=== PATIENT | male | born 1990 | race Caucasian/White ===

== ENCOUNTER 2020-12-26 10:08 | Outpatient (REF) | payer BC, SELFPAY | END 2020-12-26 10:09 | disposition home or self-care (01) | LOC: LBN 10:08 | PROVIDERS: Visit Provider Physician Assistant Medical | DX: J02.9 Acute pharyngitis, unspecified (principal) | CPT/HCPCS: 87070 ==

== ENCOUNTER 2021-02-25 08:42 | Outpatient (REF) | payer BC, SELFPAY ==
[2021-02-25 16:21] LABS: BUN 10 mg/dL (7-18); Calcium 8.9 mg/dL (8.5-10.1); Glucose 86 mg/dL (74-106)
[2021-02-25 16:22] LABS: CREATININE 0.9 mg/dL (0.70-1.30); Calculated LDL 91 mg/dL (<100); Cholesterol 147 mg/dL (<200); HDL Cholesterol 47 mg/dL (40-60); Total Protein 7.4 g/dL (6.4-8.2); Triglyceride 45 mg/dL (<150)
[2021-02-25 16:23] LABS: Albumin 4.5 g/dL (3.4-5.0)
[2021-02-25 16:24] LABS: Alkaline Phosphatase 85 U/L (46-116); Bilirubin, Total 0.7 mg/dL (0.2-1.0); Chloride 102 mmol/L (98-107); Sodium 142 mmol/L (136-145)
[2021-02-25 16:25] LABS: ALT 33 U/L (16-63); AST 15 U/L (15-37); Anion Gap 10.6 mmol/L (3-11); CO2 29.4 mmol/L (21.0-32.0); TSH 0.92 uIU/mL (0.36-3.74)
[2021-02-25 16:26] LABS: FREE T4 1.01 ng/dL (0.76-1.46)
== END 2021-02-25 08:43 | disposition home or self-care (01) ==
LOC: NCHCN 08:42
PROVIDERS: Visit Provider Physician Assistant
DX: Z00.00 Encounter for general adult medical examination without abnormal findings (principal); Z13.220 Encounter for screening for lipoid disorders; Z13.29 Encounter for screening for other suspected endocrine disorder
CPT/HCPCS: 80053; 80061; 84439; 84443

== ENCOUNTER 2021-10-01 13:03 | Emergency (ER) | payer BC, SELFPAY ==
[2021-10-01 13:13] VITALS: BP 133/81; PULSE 74; RESP 16; TEMP 36.6; O2SAT 98
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
[2021-10-01 15:01] VITALS: BP 126/55; PULSE 66; RESP 16; O2SAT 99
--- NOTE | 2021-10-05 15:48 | NUR.NOTE ---
Nursing Note: Patient spoke with Fred Parson about a work note. A handwritten one was done, a copy sent to medical records, patient copy faxed to [facility] and patient will pick remover his copy tomorrow.
== END 2021-10-01 15:02 | disposition home or self-care (01) ==
PROVIDERS: Emergency Provider Physician Assistant
DX: S49.81XA Other specified injuries of right shoulder and upper arm, initial encounter (principal); W17.81XA Fall down embankment (hill), initial encounter; Y93.55 Activity, bike riding
CPT/HCPCS: 99283; 73030; 99282

== ENCOUNTER 2023-04-29 14:49 | Outpatient (CLI) | payer SELFPAY ==
[2023-05-02 13:11] LABS: Varicella IgG Antibody Negative (See Note)
[2023-05-02 13:14] LABS: Measles IgG Antibody Negative (See Note); Mumps Antibody IgG Positive (See Note)
[2023-05-02 13:53] LABS: Rubella IgG Ab (UVM) Positive (See Note)
[2023-05-02 15:06] LABS: TB Interpretation Positive (Negative); TB1 Ag minus Nil 0.44 IU/ml; TB2 Ag minus Nil 0.52 IU/mL
== END 2023-04-29 14:50 | disposition home or self-care (01) ==
LOC: LBO 14:50
PROVIDERS: PCP Physician Assistant; Visit Provider Nurse Practitioner Family
DX: Z02.1 Encounter for pre-employment examination (principal)
CPT/HCPCS: 36415; 86787; 86480; 86735; 86762; 86765

== ENCOUNTER → 2023-05-05 02:19 | Outpatient (CLI) | payer BC, SELFPAY ==
--- NOTE | 2023-05-05 09:15 | DI.RAD_ITS ---
Exam(s) XR CHEST 2V PA LATERAL EXAM: XR CHEST 2V PA LATERAL CLINICAL HISTORY: screening,P tb gold test,R76.12 TECHNIQUE: 2D digital imaging was performed. COMPARISON: No exams were available for comparison FINDINGS: No evidence of adenopathy. HEART: Normal size. Aorta: Not dilated. PULMONARY VASCULATURE: Normal. LUNGS: Clear. PLEURAL SPACE: No pleural effusion or pneumothorax. BONE:Unremarkable for age. Soft tissues: Unremarkable. IMPRESSION: No acute abnormality. No evidence of active or old healed tuberculosis. DATA REPOSITORY: RADIATION DOSE DELIVERED:
== END ==
PROVIDERS: PCP Physician Assistant; Visit Provider Nurse Practitioner Family
DX: R76.12 Nonspecific reaction to cell mediated immunity measurement of gamma interferon antigen response without active tuberculosis (principal)
CPT/HCPCS: 71046

== ENCOUNTER 2023-06-14 11:34 | Outpatient (REF) | payer BC, SELFPAY ==
[2023-06-14 15:35] LABS: HCT 42.4 % (40.0-50.0); HGB 14.7 g/dL (13.5-17.5); MCH 31.4 pg (27.0-33.0); MCHC 34.7 % (32.0-36.0); MCV 91 fL (80-95); MPV 11.3 fL (8.0-11.0); Platelet Count 216 10^3/uL (130-400); RBC 4.68 10^6/uL (4.36-5.78); RDW 11.9 % (11.8-14.1); RDW-SD 39.3 fL; WBC 10.54 10^3/uL (4.4-10.8)
[2023-06-14 16:29] LABS: ALT 30 U/L (16-63); AST 16 U/L (15-37); Albumin 4.6 g/dL (3.4-5.0); Alkaline Phosphatase 68 U/L (46-116); Anion Gap 9.8 mmol/L (3-11); BUN 14 mg/dL (7-18); Bilirubin, Total 0.6 mg/dL (0.2-1.0); CO2 28.2 mmol/L (21.0-32.0); CREATININE 0.9 mg/dL (0.70-1.30); Calcium 9.3 mg/dL (8.5-10.1); Chloride 103 mmol/L (98-107); FREE T4 1.03 ng/dL (0.76-1.46); Glucose 94 mg/dL (74-106); Potassium 4.3 mmol/L (3.5-5.1); Sodium 141 mmol/L (136-145); TSH 0.59 uIU/Ml (0.36-3.74); Total Protein 7.5 g/dL (6.4-8.2)
[2023-06-14 17:06] LABS: Hemoglobin A1C 5.2 % (<5.7)
== END 2023-06-14 11:35 | disposition home or self-care (01) ==
LOC: NCHCN 11:34
PROVIDERS: PCP Physician Assistant; Referring Provider Physician Assistant; Visit Provider Physician Assistant
DX: R63.4 Abnormal weight loss (principal); Z13.1 Encounter for screening for diabetes mellitus
CPT/HCPCS: 80053; 85027; 83036; 84439; 84443

== ENCOUNTER 2023-07-15 16:42 | Outpatient (CLI) | payer BC, SELFPAY ==
[2023-07-15 15:26] LABS: Abs Immature Grans 0.01 10^3/uL (0.0-0.06); Absolute Basophil Count 0.03 10^3/uL (0.0-0.2); Absolute Eosinophil Count 0.13 10^3/uL (0.0-0.7); Absolute Lymphocyte Count 1.72 10^3/uL (1.2-3.4); Absolute Monocyte Count 0.53 10^3/uL (0.1-0.8); Absolute Neutrophil Count 3.22 10^3/uL (1.2-6.7); Basophils % 0.5; Eosinophils % 2.3; HCT 42.1 % (40.0-50.0); HGB 14.2 g/dL (13.5-17.5); Immature Grans % 0.2; Lymphocytes % 30.5; MCHC 33.7 % (32.0-36.0); MCV 92 fL (80-95); Monocytes % 9.4; Neutrophils % 57.1; Platelet Count 178 10^3/uL (130-400); RBC 4.58 10^6/uL (4.36-5.78); RDW 11.9 % (11.8-14.1); RDW-SD 39.7 fL; WBC 5.64 10^3/uL (4.4-10.8)
== END 2023-07-15 16:43 | disposition home or self-care (01) ==
LOC: LBO 16:44
PROVIDERS: PCP Physician Assistant; Visit Provider Family Medicine
DX: B37.0 Candidal stomatitis (principal)
CPT/HCPCS: 36415; 85025

== ENCOUNTER 2023-07-26 13:30 | Outpatient (REF) | payer BC, SELFPAY ==
[2023-07-26 16:02] LABS: ALT 36 U/L (16-63); AST 14 U/L (15-37); Albumin 4.4 g/dL (3.4-5.0); Alkaline Phosphatase 73 U/L (46-116); Anion Gap 5.8 mmol/L (3-11); BUN 12 mg/dL (7-18); Bilirubin, Total 0.6 mg/dL (0.2-1.0); CO2 33.2 mmol/L (21.0-32.0); CREATININE 0.9 mg/dL (0.70-1.30); Calcium 9.2 mg/dL (8.5-10.1); Chloride 101 mmol/L (98-107); Glucose 86 mg/dL (74-106); Potassium 4.4 mmol/L (3.5-5.1); Sodium 140 mmol/L (136-145); Total Protein 7.4 g/dL (6.4-8.2)
== END 2023-07-26 13:31 | disposition home or self-care (01) ==
LOC: NCHCN 13:30
PROVIDERS: PCP Physician Assistant; Visit Provider Physician Assistant
DX: Z22.7 Latent tuberculosis (principal)
CPT/HCPCS: 80053

== ENCOUNTER 2023-07-29 19:26 | Emergency (ER) | payer OTHER, BC, SELFPAY ==
[2023-07-29 19:32] VITALS: BP 143/87; PULSE 70; RESP 18; TEMP 36.1; O2SAT 98
[2023-07-29 19:35] VITALS: RESP 18
--- NOTE | 2023-07-29 20:03 | NUR.NOTE ---
Pt placed on care management referral list to Occupational Health for post exposure of needle stick to be seen as soon as possible and patient was started on (PEP)
[2023-07-29 20:11] LABS: ALT 39 U/L (16-63); AST 23 U/L (15-37); Albumin 4.3 g/dL (3.4-5.0); Alkaline Phosphatase 64 U/L (46-116); Bilirubin, Direct 0.1 mg/dL (0.0-0.2); Bilirubin, Total 0.2 mg/dL (0.2-1.0); Total Protein 7.3 g/dL (6.4-8.2)
[2023-07-29] MEDS: Raltegravir Potassium 400 MG TAB PO (20:12)
[2023-07-29] MEDS: Emtricitabine/Tenofovir 200 mg/300 mg TAB 1 EACH PO (20:12)
--- NOTE | 2023-07-29 22:40 | ED.GENADUL_ITS ---
Discharge Plan Disposition Patient Disposition: Home Discharge Details Clinical Impression: Accidental hypodermic needlestick injury Primary Care Provider: Bruno Lane ED Provider: Tammy Conner Home Meds and New Rx's Prescriptions: New emtricitabine-tenofovir (TDF) [Truvada] 200-300 mg tablet 1 tab PO DAILY Qty: 27 0RF Isentress 400 mg tablet 400 mg PO BID Qty: 54 0RF ondansetron HCl 4 mg tablet 4 mg PO Q8H PRN10 Days Qty: 30 0RF emtricitabine-tenofovir (TDF) [Truvada] 200-300 mg tablet 1 tab PO DAILY Qty: 27 0RF Isentress 400 mg tablet 400 mg PO BID Qty: 54 0RF Continued ibuprofen 200 mg capsule 200 mg PO Q6H PRN rifampin 300 mg capsule 600 mg PO BID Patient Comments: TAKE TWO CAPSULES BY MOUTH EVERY DAY Discharge Instructions Additional Instructions: The postexposure prophylaxis can make you very ill, nauseous, vomit, diarrhea, stomachache I recommend taking Zofran as needed for nausea and vomiting The recommendation is that you take this medication for the full 28 days for it to be effective If for any reason you are able to test the source patient and the patient is negative you could discontinue this Recommendation for repeat testing at 4 weeks, 12 weeks, and 6 months for hepatitis, hep C, and HIV, I placed you on the list for occupational health foll ow-up, please call them if you do not hear from them on Tuesday, you may also follow-up with your primary care physician Referrals: Bruno Lane [Primary Care Provider] - HPI General Date/Time Provider Initiated Documentation: 07/29/23 19:42 . HPI Narrative: This 33-year-old male presents with report of accidental hypodermic needlestick while performing a blood draw that punctured his left middle finger around the cuticle. He washed it immediately. He states his tetanus and hepatitis B series are up-to-date. He does not know the medical history of the source patient reportedly. The patient is considered to be high risk with a history of IV drug abuse. No other additional complaints. Related Data Home Medications Medication Instructions Recorded Confirmed ibuprofen 200 mg capsule 200 mg PO Q6H PRN 10/14/21 12/29/21 emtricitabine 200 mg-tenofovir 1 tab PO DAILY #27 tabs 07/29/23 disoproxil fumarate 300 mg tablet (Truvada) emtricitabine 200 mg-tenofovir 1 tab PO DAILY #27 tabs 07/29/23 disoproxil fumarate 300 mg tablet (Truvada) ondansetron HCl 4 mg tablet 4 mg PO Q8H PRN 10 days #30 tabs 07/29/23 raltegravir 400 mg tablet 400 mg PO BID #54 tabs 07/29/23 ([facility]) raltegravir 400 mg tablet 400 mg PO BID #54 tabs 07/29/23 ([facility]) rifampin 300 mg capsule 600 mg PO BID 07/29/23 07/29/23 Previous Rx's Medication Instructions Recorded emtricitabine 200 mg-tenofovir 1 tab PO DAILY #27 tabs 07/29/23 disoproxil fumarate 300 mg tablet (Truvada) emtricitabine 200 mg-tenofovir 1 tab PO DAILY #27 tabs 07/29/23 disoproxil fumarate 300 mg tablet (Truvada) ondansetron HCl 4 mg tablet 4 mg PO Q8H PRN 10 days #30 tabs 07/29/23 raltegravir 400 mg tablet 400 mg PO BID #54 tabs 07/29/23 ([facility]) raltegravir 400 mg tablet 400 mg PO BID #54 tabs 07/29/23 ([facility]) Allergies Allergy/AdvReac Type Severity Reaction Status Date / Time No Known Allergies Allergy Unverified 07/29/23 19:37 General Stated Complaint: GenMedical MO: 4 Course Vital Signs Vital signs: Vital Signs Temperature 36.1 C L 07/29/23 19:32 Pulse 70 07/29/23 19:32 Respiratory Rate 18 07/29/23 19:32 Blood Pressure 143/87 H 07/29/23 19:32 Pulse Oximetry 98 07/29/23 19:32 Temperature 36.1 C L 07/29/23 19:32 Temperature Source Tympanic 07/29/23 19:32 Pulse 70 07/29/23 19:32 Respiratory Rate 18 07/29/23 19:35 Respiratory Effort Normal 07/29/23 19:35 Blood Pressure 143/87 H 07/29/23 19:32 Pulse Oximetry 98 07/29/23 19:32 Oxygen Delivery Method Room Air 07/29/23 19:32 Oxygen Flow Rate 0 07/29/23 19:32 Pain Level 0 07/29/23 19:32 Lab/Test Results Lab/Test Results: Laboratory Tests Range/Units 07/29/23 18:45 Total Bilirubin (0.2-1.0) mg/dL 0.2 Conjugated Bilirubin (0.0-0.2) mg/dL 0.1 AST (15-37) U/L 23 ALT (16-63) U/L 39 Alkaline Phosphatase (46-116) U/L 64 Total Protein (6.4-8.2) g/dL 7.3 Albumin (3.4-5.0) g/dL 4.3 Medical Decision Making 33-year-old male in no acute distress, puncture noted to left third digit at the cuticle with scant bleeding Discussed risk of HIV N/A low risk injury and a high risk patient and patient would like to initiate postexposure prophylaxis, I did discuss risk associated with initiating this medication and patient would like to initiate the 28-day course, Truvada and Isentress were initiated Patient will follow-up regarding hepatitis B and C Tetanus is reportedly up-to-date Given a prescription for Zofran and Pap, referred to occupational health for recheck next week and will need outpatient labs at discussed Return precautions reviewed and patient expressed understanding Quality:SDOH Health Related Social Needs: No Data to Display PFSH All Active Problems (Updated 07/29/23 @ 20:03 by JAYESH Brewer) Accidental hypodermic needlestick injury (Acute) Scapulothoracic bursitis of right shoulder (Acute) SLAP lesion of right shoulder (Acute) Separation of right acromioclavicular joint (Acute 10/01/21) Social History Smoking/Tobacco Use Status: Never Smoking risk assessment performed?: Yes Alcohol Intake: current Alcohol Intake frequency: a few times a week Substance use type: does not use Current gender identity: male Do you feel safe at home: Yes Do you feel safe in your relationship?: Yes
--- NOTE | 2023-07-30 10:30 | W.ED.FU ---
Date of service: 07/30/23 Time of Service: 10:30 Follow Up Plan: Spoke with pharmacist. They do not have the Isentress medication in stock and that is not available at any pharmacies in the area. I reviewed up-to-date and CDC guidelines. And have changed him to take the Truvada in addition to darunavir which they do have in stock.
[2023-08-01 08:46] LABS: HBs Antibody, Quant 945.5 mIU/mL (See Note); Hepatitis B Surface Ab Positive (See Note)
[2023-08-01 09:00] LABS: Hepatitis B Surface Ag Negative (Negative)
[2023-08-01 09:49] LABS: Hepatitis C Ab w Rflx HCV PCR Negative (Negative)
== END 2023-07-29 20:14 | disposition home or self-care (01) ==
PROVIDERS: Emergency Provider Physician Assistant; PCP Physician Assistant
DX: S61.233A Puncture wound without foreign body of left middle finger without damage to nail, initial encounter (principal); W46.0XXA Contact with hypodermic needle, initial encounter
CPT/HCPCS: 80076; 86706; 86803; 87340; 99283

== ENCOUNTER 2024-08-20 00:34 | Emergency (ER) | payer OTHER, SELFPAY ==
[2024-08-20 00:38] VITALS: BP 146/82; PULSE 73; RESP 14; TEMP 36.8; O2SAT 99
--- NOTE | 2024-08-20 00:52 | ED.GENADUL_ITS ---
Discharge Plan Disposition Patient Disposition: Home Condition: Good Discharge Details Clinical Impression: Accidental hypodermic needlestick injury, Exposure to blood Primary Care Provider: Bruno Lane ED Provider: Juanpablo Greenfield Home Meds and New Rx's Prescriptions: New dolutegravir 50 mg tablet 50 mg PO DAILY 28 Days Qty: 28 0RF emtricitabine-tenofovir (TDF) [Truvada] 200-300 mg tablet 1 tab PO DAILY 28 Days Qty: 28 0RF Discharge Instructions Instructions: Blood or body fluid exposure Additional Instructions: Although the risk is low, there is always a concern for potential hepatitis or HIV exposure. If your hepatitis/the patient's hepatitis levels come back positive, you will be contacted for further treatment. In regards to the HIV you will also be contacted if there are tests come back positive. In the meantime please take the antiviral medications that have been prescribed and sent to your pharmacy. Please be aware that this can cause depression and mood changes while on this medication. If you notice any worsening of your symptoms, or any new symptoms such as vomiting, diarrhea, fever, chills, shortness of breath, chest pain, numbness, weakness, or fainting , please return immediately to the emergency department for reevaluation. Please follow up with your primary care provider as soon as possible for reassessment and reevaluation. As always, it was a pleasure participating in your medical care today. Referrals: Bruno Lane [Primary Care Provider] - Discharge Data Discharge Date/Time-TO BE ENTERED AT DEPARTURE: 08/20/24 01:08 HPI General Date/Time Provider Initiated Documentation: 08/20/24 00:37 . 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 Patient does confirm that he is up-to-date on his vaccinations including his hepatitis B vaccine series. 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 It then poked his left index finger. Patient was actively bringing the patient into the ED, and sought care after he completed his tasks with the patient he was managing. He denies any history of HIV or hepatitis. He has received postexposure prophylaxis in the past. No other complaints at this time. No other modifying factors. For historical reference, patient that was receiving the IV had no history of hepatitis or HIV. Patient was low risk per their report. Related Data Home Medications ?Medication ?Instructions ?Recorded ?Confirmed dolutegravir 50 mg tablet 50 mg PO DAILY 4 weeks #28 tabs 08/20/24 emtricitabine 200 mg-tenofovir 1 tab PO DAILY 4 weeks #28 tabs 08/20/24 disoproxil fumarate 300 mg tablet (Truvada) Previous Rx's ?Medication ?Instructions ?Recorded dolutegravir 50 mg tablet 50 mg PO DAILY 4 weeks #28 tabs 08/20/24 emtricitabine 200 mg-tenofovir 1 tab PO DAILY 4 weeks #28 tabs 08/20/24 disoproxil fumarate 300 mg tablet (Truvada) Allergies Allergy/AdvReac Type Severity Reaction Status Date / Time No Known Allergies Allergy Verified 08/20/24 00:37 General Stated Complaint: GenMedical MO: 4 Exam Narrative Exam Narrative: 1.Const: Well-nourished, Well-developed, appearing stated age 2.Eyes: PERRL, no conjunctival injection, and symmetrical lids. 3.ENT: Atraumatic external nose and ears. Moist MM. Neck: Symmetric, trachea midline, No thyromegaly. 4.CVS: +S1/S2, Peripheral pulses 2+ and equal in all extremities. Brisk capillary refill in all extremities. 5.RESP: Unlabored respiratory effort. Clear to auscultation bilaterally. No wheezes rales or rhonchi 6.GI: Soft, Nontender/Nondistended, No hepatosplenomegaly. No guarding or rebound. 7.MSK: Normocephalic/Atraumatic, Extremities w/o deformity or ttp No cyanosis or clubbing, Normal movement of all extremities 8.Skin: Small needle puncture in left index finger, no bleeding. No redness or drainage. 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 Sensation grossly intact, no focal neurologic deficits. 10.Psych: (AAO) x3. 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 Patient does confirm that he is up-to-date on his vaccinations including his hepatitis B vaccine series. 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 It then poked his left index finger. Patient was actively bringing the patient into the ED, and sought care after he completed his tasks with the patient he was managing. He denies any history of HIV or hepatitis. He has received postexposure prophylaxis in the past. No other complaints at this time. No other modifying factors. For historical reference, patient that was receiving the IV had no history of hepatitis or HIV. Patient was low risk per their report. Physical exam is unremarkable aside for small needlestick in the left index finger which was washed aggressively. Patient is low risk for HIV or hepatitis transmission. Patient has full hepatitis vaccinations per history, and would not be a candidate at this stage for hepatitis immunoglobulin. Patient is low risk for HIV, however we discussed risk and benefits of therapy/prophylactic treatment. At this time weighing the risks and benefits, patient has elected to move forward with postexposure prophylaxis. Unfortunately we do not have dolutegravir here in the hospital. Instead we will give a dose of raltegravir. We will also give the initial dose of Truvada here. Will give prescription for 4 weeks of dolutegravir and Truvada for home. Recommend that the patient stops early if testing comes back negative for HIV or hepatitis. Discussed red flags which to return. I have extensively reviewed the treatment plan and discharge instructions with the patient. I have addressed all patient concerns at this time. The patient was made aware of what symptoms to monitor for that would warrant a return to the emergency department. Discussed the plan with the p atient, they demonstrate verbal understanding and agreement with our assessment and plan at this time. The documentation in this chart was dictated using [employer] dictation software. Please excuse any dictation errors. Additionally patient's liver function is normal. Quality:SDOH Health Related Social Needs: No Data to Display PFSH All Active Problems (Updated 08/20/24 @ 00:53 by Juanpablo Greenfield DO) Exposure to blood (Acute) Accidental hypodermic needlestick injury (Acute) Scapulothoracic bursitis of right shoulder (Acute) SLAP lesion of right shoulder (Acute) Separation of right acromioclavicular joint (Acute 10/01/21) Social History Smoking/Tobacco Use Status: Never Smoking risk assessment performed?: Yes Alcohol Intake: current Alcohol Intake frequency: a few times a week Substance use type: does not use Current gender identity: male Do you feel safe at home: Yes Do you feel safe in your relationship?: Yes
[2024-08-20] MEDS: Emtricitabine/Tenofovir 200 mg/300 mg TAB 1 EACH PO (01:05)
[2024-08-20] MEDS: Raltegravir Potassium 400 MG TAB PO (01:05)
[2024-08-20 01:20] LABS: ALT 19 U/L (16-63); AST 17 U/L (15-37); Albumin 4.7 g/dL (3.4-5.0); Alkaline Phosphatase 68 U/L (46-116); Bilirubin, Direct 0.2 mg/dL (0.0-0.2); Bilirubin, Total 0.7 mg/dL (0.2-1.0); Total Protein 7.5 g/dL (6.4-8.2)
[2024-08-20 18:53] LABS: HBs Antibody, Quant 787.2 mIU/mL (See Note); Hepatitis B Surface Ab Positive (See Note)
[2024-08-20 19:02] LABS: Hepatitis B Surface Ag Negative (Negative)
[2024-08-20 19:34] LABS: Hepatitis C Ab w Rflx HCV PCR Negative (Negative)
[2024-08-20 19:36] LABS: HIV-1/2 Ag & Ab Screen Negative (Negative)
--- NOTE | 2024-08-21 13:19 | NUR.NOTE ---
Nursing Note:Patient had a question about when he could stop taking his prescription
== END 2024-08-20 01:08 | disposition home or self-care (01) ==
LOC: ER 01:04
PROVIDERS: Emergency Provider Student in an Organized Health Care Education/Training Program; PCP Physician Assistant
DX: Z77.21 Contact with and (suspected) exposure to potentially hazardous body fluids (principal); W46.0XXA Contact with hypodermic needle, initial encounter; Y99.0 Civilian activity done for income or pay
CPT/HCPCS: 99283 ×2; 80076; 86706; 86803; 87340; 87389